=== PATIENT | male | born 1960 | race Caucasian/White ===

== ENCOUNTER 2025-05-01 21:38 | Inpatient (IN) | payer OTHER, SELFPAY ==
[2025-05-01] VITALS (40 sets, daily range): BP systolic 73–187; BP diastolic 51–113
--- NOTE | 2025-05-01 18:48 | PTCARENOTE ---
patient placed on cardiac/oxygen saturation monitoring, noted to be hypoxic in the 50s; nonrebreather applied, saturations increased to low 90s.
[2025-05-01 18:53] LABS: Glucose - Point of Care 173 mg/dl (70-99)
--- NOTE | 2025-05-01 18:53 | PTCARENOTE ---
patient transported to CT
--- NOTE | 2025-05-01 18:58 | PTCARENOTE ---
while at CT, patient mentioned he has had an upper respiratory infection for the past few weeks and states 'he does not feel right'.
--- NOTE | 2025-05-01 19:02 | ED.CVA ---
History of Present Illness
General
Chief Complaint: Change in Mental Status
Source: patient and spouse
Exam Limitations: none
Time Seen by Provider: 05/01/25 18:46
Nursing documentation reviewed up to this point in time: agreed with
Onset of Stroke Symptoms
Onset of symptoms known: Yes
Date of onset of symptoms: 05/01/25
Time of onset of symptoms: 17:20
Date last time pt seen normal: 05/01/25
Time last time pt seen normal: 06:00
History of Present Illness
History of Present Illness:
Patient without any significant past medical history, presents to ED secondary to visual hallucination along with unstable gait, noted by spouse, when he came back from work around 5:20 PM. Patient was seen at urgent care center and subsequently
referred to ED for an evaluation. Upon arrival, patient is alert, awake, alert and oriented, and is without any complaints. Of note, per spouse, patient has had upper respiratory symptoms for the past 1 week with decreased appetite. Patient does
not see family physician on a regular basis. As such, patient currently does not take any medications. Denies previous history of similar symptoms. Patient himself has no complaints.
Review of Systems
Review of Systems
Allergies reviewed?: Yes
All Other Systems: ROS reviewed and negative except as documented in HPI and ROS
Constitutional: Reports no symptoms
Respiratory: Reports no symptoms
Cardiac: Reports no symptoms
ABD/GI: Reports no symptoms
Musculoskeletal: Reports no symptoms
Skin: Reports no symptoms
Neurological: Reports other (Unsteady gait)
Psychiatric: Reports hallucinations
Phy Exam
Physical Exam
Physical Exam:
Physical Exam
General: no apparent distress, not acutely ill. afebrile
Head: nc/at. eomi
Neck: supple. no meningeal signs.
Heart: s1/s2 regular rate and rhythm
Lungs: no acute respiratory distress. clear bilaterally
Abdomen: normal bowel sounds. not tender.
Neuro: alert and oriented x 3. no focal neurological deficits. normal speech
Skin: no rash
Psychiatric: well kept. interactive but appears agitated
Extremities: no edema. no calf tenderness.
Sepsis
Sepsis Screening
Sepsis Assessment: Sepsis Ruled Out
Sepsis Screen
Sepsis Screen: Sepsis Ruled Out
Date: 05/01/25
Time: 23:42
Course
Orders/Labs/Results
Orders:
Orders
05/01/25 18:46
Electrocardiogram (*1) Stat
Reason for Study: Other
Other Reason for Exam: neuro symptoms
CT BRAIN PERF STROKE ALERT Urgent
Comment:
Reason For Exam: ataxia, slurred speech
CT HEAD STROKE ALERT W/o Cont Urgent
Comment:
Reason For Exam: ataxia, slurred speech
CT HEAD/NECK ANG STROKE ALERT Urgent
Comment:
Reason For Exam: ataxia, slurred speech
Bedside Glucose- Treatment ONCE
Cardiac Monitoring- Treatment ONCE
EKG- Treatment ONCE
05/01/25 19:19
CR Chest Portable - 1 View Urgent
Comment:
Reason For Exam: cough/hypoxia
Reason Study Needs to be Portable: Patient Unstable
05/01/25 19:30
Complete Blood Count/With Diff Urgent
Comprehensive Metabolic Panel Urgent
Magnesium Urgent
Comment: ADD ON
PTT Urgent
Phosphorus Urgent
Comment: ADD ON
Prothrombin Time Urgent
05/01/25 19:38
ABG [Arterial Blood Gas] Urgent
%Oxygen/Room Air: room air
Lactic Acid Urgent
Blood Culture Urgent
TERE Source: Blood/Venous
Specimen Description:
05/01/25 19:39
Levetiracetam Injectable [Keppra] 1,000 mg .ROUTE .[facility]
05/01/25 19:42
Levetiracetam Injectable [Keppra] 1,000 mg IV NOW STA
05/01/25 19:50
Blood Culture Urgent
TERE Source: Blood/Venous
Specimen Description:
05/01/25 20:03
Propofol 1,000,000 Mcg/100 ml [Diprivan] 1,000,000 mcg in 100 ml .ROUTE .[facility]
05/01/25 20:14
Portable Chest Xray [CR Chest Portable - 1 View] Stat
Comment:
Reason For Exam: intubation
Reason Study Needs to be Portable: Unable to Transport
05/01/25 20:30
Carboxymethylcellulose [Refresh Celluvisc Gel] 1 drops OPHTH Q12H
Etomidate [Amidate 20 mg] 20 mg IV NOW STA
Succinylcholine Chloride [Anectine] 160 mg IV NOW STA
Vecuronium [place] [Norcuron] 10 mg IV NOW STA
05/01/25 20:31
0.9% Sodium Chloride 1000 ml [Nss] 1,000 ml IV BOLUS
Propofol 1,000,000 Mcg/100 ml [Diprivan] 1,000,000 mcg in 100 ml IV NOW
Indication:: Light Sedation
Begin Infusion:: Now
Goal:: RASS 0 to -2
Maximum dose in mcg/kg/min:: 50
Initial dose based on RASS:: Yes
If RASS is:: +1 or pt hemodynamically unstable (SBP < 90mmHg), initiate at 10 mcg/kg/min
If RASS is:: +2, initiate at 20 mcg/kg/min
If RASS is:: greater than or equal to +3, initiate at 30 mcg/kg/min
Titration Instructions:: Titrate by 5-10 mcg/kg/min every 5 minutes until RASS 0 to -2 achieved.
Taper Instructions:: If RASS is at or below goal for 4 consecutive hours decrease infusion by
Taper Instructions:: 5-10 mcg/kg/min every 2 hours to off.
Over-sedation Instructions:: If CPOT 0-2 (at goal) AND RASS -3 to -5 (below goal) decrease sedative by
Over-sedation Instructions:: 50% first. If pain score remains at goal and RASS remains below goal in
Over-sedation Instructions:: 1 hour, decrease opioid infusion by 50%.
Notify provider:: immediately if patient exhibits signs/symptoms of propofol-related
Notify provider:: infusion syndrome.
Additional Instructions:: Patient MUST be mechanically ventilated and MUST receive analgesia.
05/01/25 20:32
Piperacillin/Tazo 3.375 Gram [Zosyn] 3.375 gram in 50 ml IV NOW
05/01/25 20:55
BNP [NT-proBNP] Stat
COVID-19 Antigen Stat
Source: Nasal Swab
Triglycerides Routine
Comment: baseline levels with propofol infusion
Troponin I Stat
Influenza A+B Rapid Molecular Stat
TERE Source: Nasal Swab
Specimen Description:
05/01/25 21:04
Admit/Transfer Patient As Directed
Co-Sign Provider:
Level of Care: Inpatient admission
Assign to:: ICU
Physician / Group: Bryan
Diagnosis: Hypercarbic respiratory failure
Reason for Hospitalization: Hypercarbic respiratory failure
Expected length of stay greater than two midnights?: Yes
ELOS- Estimated Length of Stay in days: 2
I certify the patient meets the requirements for IP care: Yes
05/01/25 21:05
PRN Pain Medication Management As Directed
May give lesser potent ordered pain med per pt: Yes
preference::
Protocol:: Medication orders for pain may be administered in a
manner that supports deferring to patient preference
when the pt is:
- Requesting an ordered lesser potent pain medication.
Least to most potent pain medications are defined
as: acetaminophen < NSAID < tramadol < opioids
(morphine, oxycodone, hydromorphone).
- Requesting a lesser dose of the same medication IF
ORDERED.
- Requesting a less intrusive route of administration
if both routes are prescribed by the provider (PO <
IV).
05/01/25 21:06
Code Status As Directed
Resuscitation Status: Full Code
Chest X-ray Portable [CR Chest Portable - 1 View] Stat
Comment:
Reason For Exam: intubation
Reason Study Needs to be Portable: Patient Unstable
05/01/25 21:16
Sputum Culture [Respiratory Culture/Gram Stain] Stat
TERE Source: Sputum
Specimen Description:
05/01/25 21:31
Vancomycin [Vancocin] 2,000 mg 0.9% Sodium Chloride 500 ml [Nss] 500 ml IV NOW
05/01/25 22:27
Acetaminophen [Tylenol] 650 mg PO Q4HPRN PRN
Dextrose 5%/0.9%Sodchl 1000 ml [D5/0.9% Sodium Chloride] 1,000 ml IV 100 mls/hr
Ipratropium/Albuterol Sulfate [Duoneb] 3 ml INH R Q4HPRN PRN
Ondansetron Injectable [Zofran] 4 mg IV Q6HPRN PRN
Propofol 1,000,000 Mcg/100 ml [Diprivan] 1,000,000 mcg in 100 ml IV PER PROTOCOL
Indication:: Light Sedation
Begin Infusion:: Now
Goal:: RASS 0 to -2
Maximum dose in mcg/kg/min:: 50
Continue currently infusion dose and titrate:: Yes
Titration Instructions:: Titrate by 5-10 mcg/kg/min every 5 minutes until RASS 0 to -2 achieved.
Taper Instructions:: If RASS is at or below goal for 4 consecutive hours decrease infusion by
Taper Instructions:: 5-10 mcg/kg/min every 2 hours to off.
Over-sedation Instructions:: If CPOT 0-2 (at goal) AND RASS -3 to -5 (below goal) decrease sedative by
Over-sedation Instructions:: 50% first. If pain score remains at goal and RASS remains below goal in
Over-sedation Instructions:: 1 hour, decrease opioid infusion by 50%.
Notify provider:: immediately if patient exhibits signs/symptoms of propofol-related
Notify provider:: infusion syndrome.
Additional Instructions:: Patient MUST be mechanically ventilated and MUST recieve analgesia
VANCOMYCIN Pharmacy to Dose [VANCOCIN Pharmacy to Dose] 1 each Pharmacy To Prepare [Call Pharmacy To Prepare] 0 ml IV PER PROTOCOL
05/01/25 22:27
Sales Inspector Consult Routine
Consulting Provider: Camilla Petersen
Was physician already notified: Yes
Reason for consult: hypercarbic resp failure
Venous Blood Gas Routine
%Oxygen/Room Air: 50
Legionella Urinary Antigen Routine
TERE Source: Urine
Specimen Description:
Respiratory Culture/Gram Stain Urgent
TERE Source: Sputum
Specimen Description:
Strep pneumoniae Antigen Routine
TERE Source: Urine
Specimen Description:
MRI Brain [MR Brain Without Contrast] Routine
Comment:
Reason For Exam: f/u CT for AMS, suspected basal ganglia infarct
Recent pill cam endoscopy?: Yes
Activity As Directed
Activity Level: Out of Bed-Early Mobility
Intake/ Output As Directed
Frequency: Per unit guidelines
Vital Signs As Directed
Frequency: Per unit guidelines
Weight As Directed
Frequency: Once
Comment: on admission
Pulse Ox/cont/shift [RESP] Routine
Quantity: 1
Special Instructions: notify provider if SPO2 < 91%
Ventilator Initial Settings [RESP] Routine
Tidal Volume: 500
Rate: 22
FIO2: 50
PEEP: 5
Pt Eval And Treat Routine
Activity Level: With Assistance
DX Deep Vein Thrombosis Video Routine
05/01/25 23:00
MethylPREDNISolone PF [Solu-Medrol Pf] 40 mg IV Q6H
05/02/25 04:00
Piperacillin/Tazo 3.375 Gram [Zosyn] 3.375 gram in 50 ml IV Q6H
05/02/25 Breakfast
NPO
Allow oral meds: No
Allow clear liquids: No
Arterial Blood Gas IN AM
%Oxygen/Room Air: 50
Basic Metabolic Panel IN AM
Complete Blood Count/No Diff IN AM
05/02/25 08:00
Ipratropium/Albuterol Sulfate [Duoneb] 3 ml INH R QID
Pantoprazole [Protonix IV] 40 mg IV DAILY
Polyethylene Glycol Powder [Miralax] 17 grams TUBE DAILY
05/02/25 18:00
Enoxaparin Sodium [Lovenox] 40 mg SC QPM
05/04/25 06:00
Triglycerides Q3D
Comment: every 72 hours while patient is on propofol
05/07/25 06:00
Triglycerides Q3D
Comment: every 72 hours while patient is on propofol
05/10/25 06:00
Triglycerides Q3D
Comment: every 72 hours while patient is on propofol
Abnormal Lab Results
05/01/25 05/01/25 05/01/25
18:50 19:30 19:38
RBC 4.02 L 10^6/uL
(4.70-6.10)
Hgb 11.8 L g/dL
(13.0-18.0)
Hct 36.9 L %
(39.0-52.0)
MCHC 32.0 L g/dL
(33.0-37.0)
MPV 11.0 H fL
(7.4-10.4)
Abs Immat Gran (auto) 0.1 H 10^3/uL
(0-0.05)
Absolute Neuts (auto) 7.9 H 10^3/uL
(1.4-6.5)
Absolute Monos (auto) 0.8 H 10^3/uL
(0.1-0.6)
Immature Gran % 1.2 H %
(0-0.5)
Neutrophils % 76.7 H %
(42.2-75.2)
Lymphocytes % 13.3 L %
(20.5-51.1)
PT 15.1 H Sec
(11.4-14.6)
APTT 35.8 H Sec
(23.4-35.0)
pH 7.08 L*
(7.35-7.45)
pCO2 > 115 H* mmHg
(35-48)
pO2 160 H mmHg
(83-108)
HCO3 36.2 H mmol/L
(21-28)
ABG O2 Sat (Measured) 100.0 H %
(94-98)
Carbon Dioxide 33 H mmol/L
(22-30)
BUN 36 H mg/dl
(9-20)
Glucose 168 H mg/dl
(70-99)
POC Glucose 173 H mg/dl
(70-99)
05/01/25 19:30
05/01/25 19:30
Vital Signs
Initial and Last Documented VS:
Initial Vital Signs
Temp Pulse Resp BP Pulse Ox
97.9 F 115 23 154/91 96
05/01/25 19:18 05/01/25 19:18 05/01/25 19:18 05/01/25 19:18 05/01/25 19:18
Last Documented Vital Signs
Temp Pulse Resp BP Pulse Ox
100.1 F 60 20 94/70 97
05/01/25 19:19 05/01/25 23:15 05/01/25 23:15 05/01/25 23:15 05/01/25 23:00
MDM/Problems Addressed
MDM/Problems Addressed:
Patient evaluated immediately upon arrival and stroke alert activated, due to mental status change, mildly slurred speech and unstable gait when transferring to [facility] from wheelchair. Patient found to be hypoxic, requiring supplemental oxygen.
Shortly after returning from CT scan, patient noted to become less conversational and responsive to verbal or physical stimuli. With initial CT head report, discussed with stroke fellow at [facility], Dr. Olivo. As
patient's last well-known time was 6 AM, does not feel the patient will be a candidate for tenecteplase. Recommends further evaluation and treatment, as on his interpretation, CT reveals possible hypodensity in midbrain, which will need further
studies.
In light of patient's recent URI symptoms, smoking history, and altered mental status, arterial blood gas ordered, with concern for potential hypercapnia. With patient's continual deterioration of mental status and diminished gag reflex, discussed
with patient's spouse and daughters at bedside regarding potential intubation for airway protection. Initially, spouse was hesitant as her previous discussion with patient, patient had made it clear to spouse that he did not wish to be put on
ventilator. However as patient's presenting symptoms currently, which may be primarily driven by hypercapnic event, I did express to spouse and daughters, to consider intervention, as his symptoms may be treatable and intubation may be short-term
only. After discussion, everyone agreed to proceed with intubation.
Intubation successful with use of glidescope. However, during observation, after OG tube placement, approached by respiratory therapist there continues to be airleak present, along with desaturation. As such, airway visualized with glide scope,
confirming correct positioning. Afterwards, utilized a bougie and exchanged ET tube successfully, confirmed by repeat chest x-ray.
Patient will be admitted to ICU for further evaluation and treatment.
Critical care statement: A total of 60 minutes of critical care time was provided for this patient. This includes management of unstable vital signs, evaluation of the patient at bedside, reviewing the patient's pertinent medical records, discussion
with consultants, review of old EKGs and review of pertinent medical records. This time with separate from time utilized to perform the aforementioned documented procedures
*Pulse Oximetry
Patient hypoxic: yes
*EKG
Interpreted by ED Provider?: Yes
EKG Intrepretation Date: 05/01/25
Heart Rate: 115
Rate: tachycardiac
Rhythm: sinus
[place]: normal axis
Interval: normal interval
*Critical Care Note
Total Time (30-74mins, 75-104mins- exclusive of procedures): 60 min
ED Attending Note
-
Portions of this chart may have been created with voice recognition software.� Occasional wrong word or��sound alike� substitutions may have occurred due to the inherent limitations of voice recognition software.
Discharge Plan
Departure
Patient Disposition: Admit
Date of Disposition: 05/01/25
Time of Disposition: 20:33
Admit to: ICU
Presentation/result/management discussed w/ accepting MD/DO: Hospitalist
Discharge Problem:
Acute respiratory failure without hypercapnia
Interventions
Interventions:
*Risk Screen - Suicide Last Done: 05/01/25 19:51
*General Assessment Last Done: 05/01/25 19:19
*Neglect/Abuse Screening Last Done: 05/01/25 19:36
*Nursing Disposition Last Done: 05/01/25 22:00
ED- Neurological Assessment Last Done: 05/01/25 19:30
ED Swallowing Screen Last Done: 05/01/25 19:37
Discharge Date and Time
Discharge Date/Time: 05/01/25 22:06
--- NOTE | 2025-05-01 19:31 | PTCARENOTE ---
prior to and during CT scan, patient was awake, alert, confused, agitated; upon returning from CT scan, pt became stuporous, unable to answer questions.
[2025-05-01 19:36] LABS: Hematocrit 36.9 % (39.0-52.0); Hemoglobin 11.8 g/dL (13.0-18.0); Mean Corp Hgb Conc. 32.0 g/dL (33.0-37.0); Mean Corpuscular Volume 91.8 fL (80.0-94.0); Nucleated Red Blood Cells % 0 % (-); Platelet Count 153 10^3/uL (130-400); Red Cell Dist. Width 14.2 % (11.5-14.5)
[2025-05-01] MEDS: KEPPRA 1000 MG IV (19:42)
[2025-05-01 19:46] LABS: INR 1.16; PT 15.1 Sec (11.4-14.6)
[2025-05-01 19:47] LABS: APTT 35.8 Sec (23.4-35.0)
[2025-05-01 19:52] LABS: PO2 160 mmHg (83-108)
[2025-05-01 19:52] LABS: ALT (SGPT) 17 U/L (0-50); AST (SGOT) 18 U/L (17-59); Albumin 4.4 g/dl (3.5-5.0); Alkaline Phosphatase 98 U/L (38-126); Blood Urea Nitrogen 36 mg/dl (9-20); Calcium 9.1 mg/dl (8.4-10.2); Carbon Dioxide 33 mmol/L (22-30); Chloride 98 mmol/L (98-107); Glucose 168 mg/dl (70-99); Potassium 4.2 mmol/L (3.5-5.1); Sodium 138 mmol/L (135-145); Total Protein 7.9 g/dl (6.3-8.2); eGFR > 60.00
[2025-05-01 19:56] LABS: B.E. 2.7 mmol/L; HCO3 36.2 mmol/L (21-28); O2 Saturation % 100.0 % (94-98)
[2025-05-01 19:57] LABS: PCO2 > 115 mmHg (35-48)
[2025-05-01] MEDS: AMIDATE 20 MG IV (20:10)
[2025-05-01] MEDS: ANECTINE 160 MG IV (20:10)
[2025-05-01] MEDS: NORCURON 10 MG IV (20:18)
--- NOTE | 2025-05-01 20:20 | PTCARENOTE ---
verbal order obtained with verbal readback from Dr. Mack for 10 mg Vecuronium, given by Holden MELISSA at 2018
[2025-05-01] MEDS: DIPRIVAN 100 IV (20:33)
[2025-05-01] MEDS: NSS 1000 IV (20:43)
--- NOTE | 2025-05-01 20:43 | HPS.HSE ---
Family Physician
-
Family Physician: * NONE
Chief Complaint
-
Altered mental status
History of Present Illness
This is a 65-year-old male without any known past medical history, smoker presenting to the emergency department with acute worsening of respiratory status and alteration in mental status.
According to family members patient had developed a upper respiratory infection about 1 week ago. Multiple family members had a cough cold and flulike symptoms and they have mostly recovered by now. Patient had intermittent fevers and productive
cough for about a week. Yesterday appeared that he was recovering and he went to work today. At work he was sent home. On arrival at home spouse saw him disoriented. He had hallucinations. Did not measure any fever and he was taken to urgent
care. On arrival in urgent care was sent immediately to the emergency department.
Patient is smoker but denies past history of COPD and any previous hospitalizations for pneumonia or other respiratory symptoms. He has no cardiac history. He has no history of interstitial lung disease over the pulmonary illnesses. Has no prior
history of CVA.
On arrival in the emergency department he was seen in hypercarbic respiratory distress. His blood gas shows a pH of 7.08, but CO2 115. Was immediately intubated. Blood pressure is currently 94/63 with a Tmax of 100.1. Chest x-ray shows bilateral
opacities which could be consistent with pulmonary edema. CT of the brain and CTA was negative for an acute ischemic process. However the neurologist read is suspicious for possible small basal ganglia infarct which can be followed by MRI.
He has a white count of 10 but otherwise CBC was unremarkable. Electrolytes notable for a bicarb of 33 but otherwise unremarkable with BUN/creatinine of 36 and 1.2. ECG with sinus tachycardia at 105 but otherwise nonischemic.
Medical History
Past Medical History
Past Medical History: Reports None
Past Surgical History: Reports None
Social History
Tobacco: Smoker
Alcohol: None
Drug: None
Personal:
Living: With Family
Employment: Employed
Family History
Family History: Not pertinent
Allergies / Home Medications
Allergies reflects when Allergies were last updated in [employer].
Home Medications with original date entered in [employer]
Allergy/Medication List:
Allergies
Allergy/AdvReac Type Severity Reaction Status Date / Time
No Known Allergies Allergy Unverified 05/01/25 19:19
No home medications
Review of Systems
-
Unable to obtain full review of systems at this time due to: Patient Intubation
Physical Exam
Vital Signs
Vital Signs
Temp Pulse Resp BP Pulse Ox
100.1 F 110 22 94/63 92
05/01/25 19:19 05/01/25 20:30 05/01/25 20:30 05/01/25 20:30 05/01/25 20:30
Physical Exam
General: Well Developed and Intubated
HEENT: NormoCephalic, Anicteric and Moist mucous membranes
Respiratory: Rhonchi; No Wheezes
Cardiac: S1/S2, Regular Rhythm and Tachycardia
Breast: Deferred by me
GI: Soft, Non Distended and Normal Bowel Sounds
Rectal: Deferred by Provider
Genito-urinary: Deferred by me
Musculoskeletal: No Clubbing, No Cyanosis and No Edema
Skin: Warm
Neuro: Sedated
Hematologic/Lymphatic: No Lymphadenopathy
Laboratory Results
-
05/01/25 19:30
05/01/25 19:30
Laboratory Results
PT 15.1 Sec (11.4-14.6) H 05/01/25 19:30
INR 1.16 05/01/25 19:30
APTT 35.8 Sec (23.4-35.0) H 05/01/25 19:30
pH 7.08 (7.35-7.45) L* 05/01/25 19:38
pCO2 > 115 mmHg (35-48) H* 05/01/25 19:38
pO2 160 mmHg (83-108) H 05/01/25 19:38
HCO3 36.2 mmol/L (21-28) H 05/01/25 19:38
Lactic Acid 0.7 mmol/L (0.7-2.0) 05/01/25 19:38
Total Bilirubin 0.5 mg/dl (0.2-1.3) 05/01/25 19:30
AST 18 U/L (17-59) 05/01/25 19:30
ALT 17 U/L (0-50) 05/01/25 19:30
Alkaline Phosphatase 98 U/L (38-126) 05/01/25 19:30
Data Reviewed
-
Diagnostic Radiology: Report Reviewed by me
CT Scan: Report Reviewed by me
Medical Tests (Nuc Med, Echo, EKG etc): Image Personally Visualized and interpreted
Lab Data: Labs Reviewed by me
Impression/Plan
-
IMPRESSION:
67-year-old with no known significant past medical history presenting to the emergency department with hypercarbic respiratory failure and altered mental status. X-ray with multifocal opacities read as possible pulmonary edema but likely pneumonia
given patient has no prior cardiac history and has recent upper respiratory infection she had by family members. There is no leukocytosis. Copious secretions status post intubation. Rest of the labs are mostly unremarkable except for the blood
gas. CT of the head, CT angio and perfusion shows no acute infarct according to radiologist read. Neurology did note possible basal ganglia infarct that can be followed by MRI.
PLAN:
Hypercarbic respiratory failure -suspect secondary to postviral pneumonia with multifocal infiltrates. Require intubation and patient is now status post intubation.
- Admit to ICU
-Vent setting initially at 22 500 50 5 for now
-Repeat gas in 1 hour and adjust as needed
-Blood cultures, sputum cultures
-Check influenza and COVID
-Check Legionella and pneumococcal antigen
-Given failure and possible sepsis will continue vancomycin and Zosyn for now
-Given degree of hypercarbia, although known known COPD we will start [id number] neb treatment with PRNs as well as IV Solu-Medrol
- Weaning per wood casket assembler
- PPI IV prophylaxis
- Check troponin and BMP
AMS - suspect secondary to acute infection rather than CVA.
- f/u mri in am
DVT prophylaxis with Lovenox subcu
CODE STATUS full code
[2025-05-01] MEDS: ZOSYN 50 IV (20:51)
--- NOTE | 2025-05-01 21:08 | PTCARENOTE ---
over concerns of original ET tube placement, Dr Mack replaced #8 ET tube, 23 at the lip.
[2025-05-01 21:15] LABS: COVID-19 Antigen Negative (Negative)
[2025-05-01 21:26] LABS: Troponin I < 0.012 ng/ml
[2025-05-01 21:37] LABS: Triglycerides 127 mg/dl (10-149)
[2025-05-01] MEDS: VANCOCIN 540 MG IV (21:39)
[2025-05-01] MEDS: DUONEB 3 ML INH (21:40)
[2025-05-01 21:53] LABS: B.E. 5.1 mmol/L; HCO3 34.2 mmol/L (21-28); O2 Saturation % 100.0 % (94-98); PO2 199 mmHg (83-108)
[2025-05-01 21:54] LABS: PCO2 78 mmHg (35-48)
--- NOTE | 2025-05-01 21:59 | PTCARENOTE ---
report called to ICU
[2025-05-01] MEDS: SOLU-MEDROL PF 40 MG IV (23:07)
[2025-05-01] MEDS: LEVOPHED 250 IV (23:07)
[2025-05-01] MEDS: D5/0.9% SODIUM CHLORIDE 1000 IV (23:07)
[2025-05-01 23:14] LABS: Magnesium 2.2 mg/dl (1.6-2.3)
--- NOTE | 2025-05-01 23:23 | PHA.VAN.IN ---
Assessment
- Assessment
Renal Function: Unknown baseline
Concomitant Antimicrobials: PIPERACILLIN/TAZOBACTAM
AUC Dosing Plan
- Dosing Variables
Dosing Weight (kg): 100
Dosing CrCl (ml/min): 85
Vd coefficient (L/kg): 0.7
- Empiric Dosing
Initial / Loading Dose: 2000 MG ~ 2140
Maintenance Regimen: 1250 MG IV Q12H
Estimated AUC (mcg*h/mL): 503
Estimated Peak (mcg*h/mL): 30
Estimated Trough (mcg/ml): 13.7
Estimated Half Life (H): 9.2
- Monitoring
No levels ordered at this time: Consider levels in next few days
Pharmacokinetics Vancomycin I
- -
Patient Age: 65
Patient Sex: Male
Vancomycin Day #: 1
Indication: Pulmonary/Respiratory
Requesting Provider: Dr Bryan Lowe
Height / Weight:
Actual Weight 100.2 kg
- Vital Signs / Lab Results
Temp Pulse Resp BP Pulse Ox
100.1 F 60 20 94/70 97
05/01/25 19:19 05/01/25 23:15 05/01/25 23:15 05/01/25 23:15 05/01/25 23:00
Lab Results - Hematology
05/01/25
19:30
WBC 10.3
Lab Results - Chemistry
05/01/25
19:30
BUN 36 H
Creatinine 1.2
Albumin 4.4
05/01/25
19:38
Lactic Acid 0.7
Microbiology Results
05/01/25 20:55 Influenza Types A & B (MAXINE) - Final
Nasal Swab Negative for Influenza A & B, NAAT
Negative results must be combined with clinical observations
and patient history.
Nucleic Acid Amplification test (NAAT)performed on the
[employer] platform.
--- NOTE | 2025-05-01 23:55 | PTCARENOTE ---
on assessment pt intubated and sedated, SR/SB on the monitor, 99%, AC 22/500/40%/5, NPO, OGT, russo placed in ED, skin intact
[2025-05-02] VITALS (25 sets, daily range): BP systolic 87–140; BP diastolic 56–99; BMI 28.7
[2025-05-02] MEDS: DIPRIVAN 100 IV ×4 (00:13→23:55)
[2025-05-02] MEDS: SUBLIMAZE 50 MCG IV ×3 (01:31→22:24)
[2025-05-02 02:41] LABS: B.E. 5.6 mmol/L; HCO3 28.2 mmol/L (21-28); O2 Saturation % 99.8 % (94-98); PCO2 33 mmHg (35-48); PO2 74 mmHg (83-108); Potassium 4.5 mMOL/L (3.5-5.1); Sodium 136 mMOL/L (136-145)
[2025-05-02 02:51] LABS: Hematocrit 30.1 % (39.0-52.0); Hemoglobin 10.0 g/dL (13.0-18.0); Mean Corp Hgb Conc. 33.2 g/dL (33.0-37.0); Mean Corpuscular Volume 89.1 fL (80.0-94.0); Platelet Count 141 10^3/uL (130-400); Red Cell Dist. Width 14.2 % (11.5-14.5)
--- NOTE | 2025-05-02 02:52 | W.PN.UPDATE ---
Update Note
Progress Note Update
Procedure Note: Arterial Line�
� Right Wrist Arrow 20 (10/18)�
Diagnosis:��Acute respiratory failure
IV Line Comments: Uneventful Procedure�
Hilton's test completed pre-procedure: Yes�
A-Line Comments: Sterile technique as per standard protocol, Ultrasound guided insertion�
Functioning A-line in situ: Yes�
A-line Insertion Start Time:�0100�
A-line in at:��0200
[2025-05-02 03:22] LABS: Blood Urea Nitrogen 33 mg/dl (9-20); Calcium 8.3 mg/dl (8.4-10.2); Carbon Dioxide 28 mmol/L (22-30); Chloride 105 mmol/L (98-107); Glucose 167 mg/dl (70-99); Potassium 4.7 mmol/L (3.5-5.1); Sodium 137 mmol/L (135-145); eGFR > 60.00
[2025-05-02] MEDS: ZOSYN 50 IV ×2 (03:43→09:06)
[2025-05-02] MEDS: CALCIUM GLUCONATE 100 IV (03:56)
[2025-05-02] MEDS: SOLU-MEDROL PF 40 MG IV (04:00)
--- NOTE | 2025-05-02 04:08 | PTCARENOTE ---
no changes from prior assessment, [facility] placed R radial [place], zeroed and level
--- NOTE | 2025-05-02 05:02 | PTCARENOTE ---
pt SB on the monitor in the mid to high 40s, CLINICAL PSYCHIATRIST aware and weaning down sedation per orders
[2025-05-02] MEDS: PROTONIX IV 40 MG IV (07:21)
[2025-05-02] MEDS: D5/0.9% SODIUM CHLORIDE 1000 IV (07:21)
[2025-05-02] MEDS: MIRALAX 17 GRAMS TUBE (07:21)
--- NOTE | 2025-05-02 07:33 | CON.INTV ---
Consultation
Consultation Request
Date/Time Consultation Requested: 05/01/2025
Date/Time Consultation Performed: 05/02/2025
Medical History
-
Chief Complaint: Altered mental status
History of Present Illness:
Patient currently intubated and mechanically ventilated, unable to provide any history. Information mostly obtained from medical records and discussion with other healthcare providers.
As per records, patient is a 65-year-old gentleman without any known past medical history however has chronic history of smoking and also has obesity. Patient reportedly developed an upper respite tract infection about a week ago including multiple
other family members who had similar flulike symptoms. Patient symptoms however persisted persisted and he presented to the emergency room due to increasing shortness of breath. Reportedly he also has increased confusion and some hallucinations at
home. In the emergency room patient was noted to be febrile along with respiratory distress along with acidosis primarily respiratory with pCO2 above 115. Patient was emergently intubated and mechanically ventilated. Post procedure, he was
admitted to the ICU and bankruptcy processor consultation was requested for further input.
Past Medical History
Past Medical History: Reports None
Past Surgical History: Reports None
Social History
Tobacco: Smoker
Alcohol: None
Drug: None
Personal:
Living: With Family
Employment: Employed
Family History
Family History: Not pertinent
Allergies / Home Medications
Allergies / Home Medications
Allergies
Allergy/AdvReac Type Severity Reaction Status Date / Time
No Known Allergies Allergy Unverified 05/01/25 19:19
Review of Systems
-
Unable to Obtain full review of systems at this time due to: Patient Intubation
Vitals / Labs / Diagnostic Testing
Vital Signs
Temp Pulse Resp BP Pulse Ox
98.9 F 47 18 99/77 94
05/02/25 04:06 05/02/25 06:00 05/02/25 06:00 05/02/25 02:00 05/02/25 07:22
Lab Data
05/02/25 02:34
05/02/25 02:34
Laboratory Results
05/01/25 05/01/25 05/01/25
19:30 19:38 21:46
PT 15.1 H
INR 1.16
APTT 35.8 H
pH 7.08 L* 7.25 L
pCO2 > 115 H* 78 H*
pO2 160 H 199 H
HCO3 36.2 H 34.2 H
O2 Delivery Level
05/02/25 05/02/25
02:34 06:00
PT
INR
APTT
pH 7.54 H Cancelled
pCO2 33 L Cancelled
pO2 74 L Cancelled
HCO3 28.2 H Cancelled
O2 Delivery Level Cancelled
Microbiology
05/01/25 20:55 Nasal Swab Influenza Types A & B (MAXINE) - Final
Negative for Influenza A & B, NAAT
Negative results must be combined with clinical observations
and patient history.
Nucleic Acid Amplification test (NAAT)performed on the
[employer] platform.
Diagnostic Testing:
Physical Exam
-
HEENT: Normocephalic
Cardiovascular: S1/S2
Respiratory: Rhonchi and Other (Mild diffuse end expiratory wheezing, AP diameter increased)
GI: Soft and Non Distended
Neurology: Other (Sedated, on mechanical ventilation)
Skin: Warm
General: Comfortable
Assessment
-
#1. Acute on suspect chronic hypercapnic respiratory failure
- pCO2 more than 115 on admission, serial ABGs with progressive improvement most recent
- With elevated serum bicarb and alkalosis after normalization of pCO2 on blood gas, suspect patient has chronic underlying compensated hypercapnia due to undiagnosed COPD/emphysema
- Currently intubated, mechanically ventilated. SAT/SBT tried on 05 02, patient developed rapid and shallow breathing with increased secretions, patient switched back to mechanical ventilation
- Switch to ASV at 100%, current blood gas 7.30 50/175 on 40% FiO2 and 5 of PEEP. Follow-up blood gas while on ASV
- Follow-up chest x-ray in a.m.
- Continue fentanyl drip and propofol as needed for sedation. Will continue daily SAT and SBT
- Wean pressors as needed, suspect mild hypotension related to intubation, mechanical ventilation and sedation.
- Follow-up on cultures
#2. Acute encephalopathy, related to hypercapnia
- Patient more awake and alert this morning, had to be - after he failed SAT and SBT
- CT CTA have been unremarkable for acute stroke, MRI pending
#3. Emphysema/COPD with acute exacerbation.
- Patient has changes of emphysema noted on pulmonary imaging. Longstanding history of smoking
- Continue DuoNeb scheduled 4 times daily, add budesonide twice daily nebulized, lowered steroids to 40 mg Solu-Medrol daily
- No obvious infiltrates noted on chest x-ray. Discontinue vancomycin and Zosyn. Start azithromycin for COPD exacerbation.
- Influenza A, B, COVID-19 screen negative. Legionella and streptococcal antigen pending. Respiratory culture is also pending. Blood cultures drawn and pending.
- Follow-up on cultures as well as sputum analysis
- Patient will need outpatient pulmonary follow-up for pulmonary function testing including spirometry, lung volumes, diffusion capacity assessment and 6-minute walk test
#4. Obesity with suspected sleep disordered breathing/obesity hypoventilation syndrome
- With baseline compensated hypercapnia, and obesity, high likelihood of underlying sleep disordered breathing
- Patient will need outpatient pulmonary follow-up for sleep study
#5. RUL nodule on imaging
- Incidental finding on CTA head and neck. With longstanding history of smoking and emphysema, malignancy is certainly a concern
- Will proceed with CT chest once patient is improved, and extubated
- Will need outpatient close follow-up, information added to discharge section. Depending upon clinical course, patient likely will need a tissue diagnosis with bronchoscopy and biopsy
#6. Bradycardia
- Sinus bradycardia on EKG. Narrow complex qrs
- Check TSH
- d/c Norepinephrine and use Epinephrine infusion instead
- Minimize propofol, use fentanyl infusion
DVT prophylaxis with subcu Lovenox. GI prophylaxis with IV Protonix.
Critical Care time 68 mins -- The patient is admitted for acute critical illness for the treatment of vital organ failure and/or prevention of further life-threatening conditions. Total care includes time spent in review of history, physical exam,
medications, hemodynamic/ventilator parameters, laboratory data, imaging and discussion with house staff, pharmacy, respiratory therapy, swine nutritionist, and nursing.
Data:
CXR 04/2025: Bilateral interstitial opacities, most suspicious for interstitial pulmonary edema. The opacity identified in the right lung apex on the recent CT angiogram is less well seen by radiograph.
No pleural effusion or pneumothorax.
Mild enlargement of the cardiac silhouette. Chronic degenerative changes of the spine
CT head 04/2025: Unremarkable
CTA Head/Neck 04/2025: No CTA evidence for high-grade stenosis or occlusion of the [place] or the arterial vasculature in the neck. 50% stenosis of the right carotid bulb, and less than 20% stenosis of the left carotid bulb.
Mild centrilobular emphysema.
2.1 cm irregular opacity in the right upper lung apex. Chronic pleural-parenchymal scarring is considered most likely, but an infectious/inflammatory process or neoplasm are not excluded. Recommend a follow-up chest CT on a routine basis.
[2025-05-02] MEDS: DUONEB 3 ML INH ×4 (07:51→19:40)
[2025-05-02] MEDS: ADRENALIN 250 IV ×2 (08:04→17:53)
--- NOTE | 2025-05-02 08:37 | PTCARENOTE ---
pt received from previous rn- ett to vent. see settings as charted. pt bradycardiac, propofol off. Dr. Petersen aware. ekg completed per order. pt switched from levo to epi gtt. pt with episode of bradycardia in the 20s, Dr. Petersen aware. pt arouses
to name, nods yes and no to some questions, follows some simple commands. oral care and am care provided. all safety precautions in place. right radial tessa zeroed and functioning.
--- NOTE | 2025-05-02 08:57 | W.PN.HOSP.TC ---
Today's Communication/Plan
-
Continue with pain protocol
Continue with empirical antibiotics for now. Check procalcitonin and CRP. If procalcitonin is negative we will do a viral respiratory panel PCR and consider discontinuing antibiotics.
Continue steroids per pulmonary.
Assessment / Plan
Assessment / Plan
67-year-old with no known significant past medical history presenting to the emergency department with hypercarbic respiratory failure and altered mental status. X-ray with multifocal opacities read as possible pulmonary edema but likely pneumonia
given patient has no prior cardiac history and has recent upper respiratory infection she had by family members. There is no leukocytosis. Copious secretions status post intubation. Rest of the labs are mostly unremarkable except for the blood
gas. CT of the head, CT angio and perfusion shows no acute infarct according to radiologist read. Neurology did note possible basal ganglia infarct that can be followed by MRI.
PLAN:
Acute hypercarbic respiratory failure - patient is now status post intubation.
Improved gas exchange on the ventilator.
Currently on vent protocol
Suspected chronic lung disease/COPD-patient is a smoker, centrilobular emphysema and as well as a right upper lobe pleuroparenchymal/opacity noted.
Will need smoking cessation and as well as pulmonary function test once recovered from this.
Possible precipitant factor to hypercapnia may be underlying lung infection.
Suspect more acute hypercapnia on top of possible chronic hypercapnia. Admitting serum bicarb is mildly elevated. Check a urine drug screen to make sure of any substance use.
Bilateral interstitial lung infiltrates-infectious versus inflammation
Not acting like typical bacterial pneumonia-afebrile on admission, white count normal. There is also family members afflicted with respiratory illness pointing towards other viral or atypical bacterial infection.
Check procalcitonin and if negative will obtain a respiratory virus panel PCR and discontinue antibiotics
Check inflammatory markers.
Continue with empirical antibiotics for now
So far pneumococcal and streptococcal urinary antigen, flu, COVID testing negative
Doubt interstitial edema-EKG apart from sinus bradycardia no acute changes, troponins negative, and BNP normal.
Right upper lobe opacity-needs dedicated CT chest once stabilized.
Sinus bradycardia-propofol off and on epinephrine for heart rate. Continue to follow on telemetry check TSH.
AMS - suspect secondary to TME rather than CVA.
- f/u mri when extubated
DVT prophylaxis with Lovenox subcu
CODE STATUS full code
Discussed with AUTOMOTIVE GLAZIER
Discussed with machine gun mechanic
Total time spent on today's encounter was 52 minutes which included time spent in counseling the patient/family regarding diagnosis and treatment plan as listed above, goals of care, and symptom management. Case was discussed with nursing staff,
specialists, and care coordinators/case management. All labs and imaging personally reviewed by me. Remainder the time spent in detailed review of previous records, lab data, imaging, and other medical provider documentation.
Portions of this chart may have been created with voice recognition software. Occasional wrong word or 'sound alike' substitutions may have occurred due to the inherent limitations of voice recognition software.
Anticipated Discharge: > 48 hours
Subjective/Interval History
-
Date of Service: May 02, 2025
Currently intubated.
Patient is on weaning protocol-responsive to vocal commands. Follows simple commands like squeezing hands and opening and closing eyes. No obvious respiratory distress.
Objective Data
-
Labs:
Laboratory Results
05/01/25 05/02/25 05/02/25
21:46 02:34 06:00
WBC 9.5
Hgb 10.0 L
Hct 30.1 L
Plt Count 141
HCO3 34.2 H 28.2 H Cancelled
Sodium 137
Potassium 4.7
Chloride 105
Carbon Dioxide 28
BUN 33 H
Creatinine 1.0
Glucose 167 H
Calcium 8.3 L
05/02/25
09:00
WBC
Hgb
Hct
Plt Count
HCO3 Pending
Sodium
Potassium
Chloride
Carbon Dioxide
BUN
Creatinine
Glucose
Calcium
Vital Signs:
Vital Signs
Temp Pulse Resp BP Pulse Ox
98.8 F 50 15 118/79 96
05/02/25 07:59 05/02/25 07:54 05/02/25 07:54 05/02/25 07:45 05/02/25 08:15
I&O
05/01/25 05/02/25 05/03/25
06:59 06:59 06:59
Intake Total 1001.9 / 1130.4 228.5 / 228.5
Output Total 1110 / 1185 115 / 115
Balance -108.1 / -54.6 113.5 / 113.5
Review of Systems
-
Unable to obtain full review of systems at this time due to: Patient Intubation
Physical Exam
-
General: No Apparent Distress
Respiratory: Clear to Auscultation (Anteriorly) and Non Labored Respirations; Negative Wheezes (On anterior auscultation) or Accessory Resp Muscle Use
Cardiac: Regular Rhythm, S1/S2 and Bradycardic
GI: Soft, Nondistended, Normal Bowel Sounds and No Hepatosplenomegaly
Musculoskeletal: No Edema
Neuro: Awake
Psych: Calm
Data Reviewed
-
CT Scan: Report Reviewed by me (CT head, CTA of the head and neck)
Labs: Labs Reviewed by me
[2025-05-02 09:17] LABS: B.E. 0.2 mmol/L; HCO3 27.2 mmol/L (21-28); O2 Saturation % 99.4 % (94-98); PCO2 54 mmHg (35-48); PO2 175 mmHg (83-108)
[2025-05-02] MEDS: SUBLIMAZE 100 MCG IV (09:52)
[2025-05-02] MEDS: SUBLIMAZE 100 IV (09:53)
[2025-05-02] MEDS: VANCOCIN 275 MG IV (10:08)
--- NOTE | 2025-05-02 10:11 | PTCARENOTE ---
pt awake and following commands. abg sent per order. pt attemted on wean, per Dr. Petersen pt back on asv and ordered to resedated pt. fentanyl gtt initiated as per order, low dose propofol restarted.
[2025-05-02 10:14] LABS: C-Reactive Protein 47.80 mg/L (0.0-10.00)
[2025-05-02 11:39] LABS: Glucose - Point of Care 199 mg/dl (70-99)
[2025-05-02 11:43] LABS: B.E. 0.3 mmol/L; HCO3 27.2 mmol/L (21-28); O2 Saturation % 99.3 % (94-98); PCO2 54 mmHg (35-48); PO2 98 mmHg (83-108)
[2025-05-02] MEDS: ZITHROMAX INFUSION 250 IV (12:05)
[2025-05-02] MEDS: LR 1000 IV ×4 (12:05→23:03)
--- NOTE | 2025-05-02 12:12 | PTCARENOTE ---
Dr. Jordan and Dr. Petersen aware of blood sugar and urine output. see mar. family at bedside and updated. assessment unchanged.
[2025-05-02 12:42] LABS: Procalcitonin 0.06 ng/ml (0.0-0.25)
--- NOTE | 2025-05-02 13:54 | CM ---
Patient intubated. Initial assessment completed with and 2 daughters. Patient lives with his in a 2 story plus basement home with B/B on 2nd, 2 steps to enter. 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 No DME. No
in-home services. No HC-POA. No VA benefits. No psychiatric hospitalizations. PCP is Dr. Valeriano Duncan. Pharmacy is [facility] in [place]. Discharge POC: TBD.
--- NOTE | 2025-05-02 15:48 | PTCARENOTE ---
pt with 200cc of output from ogt, Dr. Petersen aware, ordered to not initiate tube feeds at this time. pt sinus rhythm hr in 60s-70s, remains on epi. map>65. assessment unchanged further
--- NOTE | 2025-05-02 15:50 | PTCARENOTE ---
pt with 150cc of output from ogt, Dr. Petersen aware, ordered to not initiate tube feeds at this time. pt sinus rhythm hr in 60s-70s, remains on epi. map>65. assessment unchanged further
[2025-05-02] MEDS: LOVENOX 40 MG SC (17:24)
[2025-05-02 17:39] LABS: Glucose - Point of Care 160 mg/dl (70-99)
[2025-05-02 17:41] LABS: B.E. 0.6 mmol/L; HCO3 27.9 mmol/L (21-28); O2 Saturation % 99.8 % (94-98); PCO2 58 mmHg (35-48); PO2 141 mmHg (83-108)
[2025-05-02] MEDS: NOVOLOG FLEXPEN-LOW RESISTANCE 1 UNITS SC (17:53)
[2025-05-02] MEDS: FLOVENT 110 MCG INHALER 4 PUFF INH (19:40)
--- NOTE | 2025-05-02 20:48 | PTCARENOTE ---
Received pt from previous RN. Pt is intubated and sedated, drowsy, + gag and cough, opens eye when being suctioned, tries to reach up for the tube, restraints in place, pt reminded he is in the hospital. NSR on the monitor, MAP goal >65, epi gtt
(see worklist). ETT #8 25 cm, vent settings ASV 100% MV/5 peep/60%, bloody tinged, clear, thick sputum, lungs diminished. OG @ 75 cm to low intermittent suction. Romero in place for critical I&O, hygiene provided. Prop, fent gtts (see worklist), LR @
100 ml/hr. CHG bath and mouth care provided. Safe environment maintained.
[2025-05-02] MEDS: NOVOLOG FLEXPEN-LOW RESISTANCE SC (23:31)
[2025-05-02 23:43] LABS: Glucose - Point of Care 116 mg/dl (70-99)
[2025-05-03] VITALS (22 sets, daily range): BP systolic 100–155; BP diastolic 58–100; PULSE 85; O2SAT 94; BMI 29.3
--- NOTE | 2025-05-03 00:05 | PTCARENOTE ---
Systems reviewed, no new changes in assessment. Epi, prop and fent gtts maintained (see worklist). Right radial tessa zeroed and transduced. Safe environment maintained.
--- NOTE | 2025-05-03 03:33 | DOWNTIME ---
There was a [employer] Client Software Build Engineer Downtime on 05/03/2025 from 0100 to 05/03/2025 at 0215. Downtime documentation of patient's care, including medication administrations, has been reconciled in the electronic record per guidelines. Refer to the
patient's paper chart under the miscellaneous tab to see printed paper medication records and downtime forms.
--- NOTE | 2025-05-03 03:46 | PTCARENOTE ---
Systems reviewed, no new changes in assessment. AM labs provided. Gtts maintained. Safe environment maintained.
[2025-05-03 03:49] LABS: B.E. 5.3 mmol/L; HCO3 30.5 mmol/L (21-28); O2 Saturation % 100.0 % (94-98); PCO2 47 mmHg (35-48); PO2 138 mmHg (83-108)
[2025-05-03 03:50] LABS: O2 Therapy VENT
[2025-05-03 03:53] LABS: Hematocrit 27.3 % (39.0-52.0); Hemoglobin 9.2 g/dL (13.0-18.0); Mean Corp Hgb Conc. 33.7 g/dL (33.0-37.0); Mean Corpuscular Volume 91.6 fL (80.0-94.0); Platelet Count 127 10^3/uL (130-400); Red Cell Dist. Width 14.6 % (11.5-14.5)
[2025-05-03 04:21] LABS: Blood Urea Nitrogen 30 mg/dl (9-20); Calcium 8.8 mg/dl (8.4-10.2); Carbon Dioxide 28 mmol/L (22-30); Chloride 107 mmol/L (98-107); Estimated Creatinine Clearance 79 ml/min; Glucose 111 mg/dl (70-99); Magnesium 2.0 mg/dl (1.6-2.3); Potassium 3.9 mmol/L (3.5-5.1); Sodium 139 mmol/L (135-145); eGFR > 60.00
[2025-05-03] MEDS: SUBLIMAZE 50 MCG IV (05:10)
[2025-05-03] MEDS: NOVOLOG FLEXPEN-LOW RESISTANCE SC ×2 (05:15→13:36)
[2025-05-03 05:26] LABS: Glucose - Point of Care 118 mg/dl (70-99)
[2025-05-03] MEDS: DIPRIVAN 100 IV (06:36)
[2025-05-03] MEDS: DUONEB 3 ML INH ×4 (07:50→20:22)
[2025-05-03] MEDS: FLOVENT 110 MCG INHALER 4 PUFF INH (07:51)
[2025-05-03 08:16] LABS: Glycohemoglobin (HgbA1c) 5.9 % (4.0-5.6)
[2025-05-03] MEDS: PROTONIX IV 40 MG IV (08:18)
[2025-05-03] MEDS: MIRALAX 17 GRAMS TUBE (08:18)
--- NOTE | 2025-05-03 08:42 | W.PN.HOSP.TC ---
Today's Communication/Plan
-
No further IV antibiotics
Continue with IV steroids and Zithromax for anti-inflammatory properties/COPD flare
Continue with the wean trial per head filter tank tender helper
Assessment / Plan
Assessment / Plan
67-year-old with no known significant past medical history presenting to the emergency department with hypercarbic respiratory failure and altered mental status. X-ray with multifocal opacities read as possible pulmonary edema but likely pneumonia
given patient has no prior cardiac history and has recent upper respiratory infection she had by family members. There is no leukocytosis. Copious secretions status post intubation. Rest of the labs are mostly unremarkable except for the blood
gas. CT of the head, CT angio and perfusion shows no acute infarct according to radiologist read. Neurology did note possible basal ganglia infarct that can be followed by MRI.
PLAN:
Acute hypercarbic respiratory failure - patient is now status post intubation.
Improved gas exchange on the ventilator.
Currently on wean protocol
Suspected chronic lung disease/COPD-patient is a smoker, centrilobular emphysema and as well as a right upper lobe pleuroparenchymal/opacity noted.
Will need smoking cessation and as well as pulmonary function test once recovered from this.
Possible precipitant factor to hypercapnia may be underlying lung infection triggering COPD flare
Suspect more acute hypercapnia on top of possible chronic hypercapnia. Admitting serum bicarb is mildly elevated. Negative urine drug screen .
Bilateral interstitial lung infiltrates-infectious versus inflammation
Not acting like typical bacterial pneumonia-afebrile on admission, white count normal. There is also family members afflicted with respiratory illness pointing towards other viral or atypical bacterial infection.
Procalcitonin normal. Respiratory virus panel PCR negative. Hold further antibiotics.
Elevated inflammatory markers noted. Continue Zithromax.
So far pneumococcal and streptococcal urinary antigen, flu, COVID testing negative
Doubt interstitial edema-EKG apart from sinus bradycardia no acute changes, troponins negative, and BNP normal.
Continue with steroids for possible COPD flare
Right upper lobe opacity-needs dedicated CT chest once stabilized.
Sinus bradycardia-resolved off of propofol
AMS - suspect secondary to TME rather than CVA.
- f/u mri when extubated
DVT prophylaxis with Lovenox subcu
CODE STATUS full code
Total time spent on today's encounter was 52 minutes which included time spent in counseling the patient/family regarding diagnosis and treatment plan as listed above, goals of care, and symptom management. Case was discussed with nursing staff,
specialists, and care coordinators/case management. All labs and imaging personally reviewed by me. Remainder the time spent in detailed review of previous records, lab data, imaging, and other medical provider documentation.
Portions of this chart may have been created with voice recognition software. Occasional wrong word or 'sound alike' substitutions may have occurred due to the inherent limitations of voice recognition software.
Anticipated Discharge: > 48 hours
Subjective/Interval History
-
Date of Service: May 03, 2025
Remains intubated but currently on weaning trial. Alert and follows commands. No respiratory distress evident.
Objective Data
-
Labs:
Laboratory Results
05/03/25 05/03/25 05/03/25
03:41 03:42 08:14
WBC 14.1 H
Hgb 9.2 L
Hct 27.3 L
Plt Count 127 L
HCO3 30.5 H Pending
Sodium 139
Potassium 3.9
Chloride 107
Carbon Dioxide 28
BUN 30 H
Creatinine 1.1
Glucose 111 H
Calcium 8.8
Vital Signs:
Vital Signs
Temp Pulse Resp BP Pulse Ox
98 F 101 18 115/74 97
05/03/25 07:31 05/03/25 08:12 05/03/25 08:12 05/03/25 04:00 05/03/25 08:12
I&O
05/02/25 05/03/25 05/04/25
06:59 06:59 06:59
Intake Total 1001.9 / 1130.4 5161.7 / 5287.5 237.1 / 237.1
Output Total 1110 / 1185 1221 / 1301 150 / 150
Balance -108.1 / -54.6 3940.7 / 3986.5 87.1 / 87.1
Review of Systems
-
Unable to obtain full review of systems at this time due to: Patient Intubation
Physical Exam
-
General: No Apparent Distress
Respiratory: Wheezes (Occasional wheeze heard in the right lung today) and Non Labored Respirations; Negative Accessory Resp Muscle Use
Cardiac: Regular Rhythm, S1/S2 and Tachycardic
GI: Soft
Neuro: Awake and Alert
Psych: Calm
Data Reviewed
-
Labs: Labs Reviewed by me
[2025-05-03 09:23] LABS: B.E. 2.9 mmol/L; HCO3 27.9 mmol/L (21-28); O2 Saturation % 98.3 % (94-98); PCO2 44 mmHg (35-48); PO2 73 mmHg (83-108)
[2025-05-03] MEDS: LR IV (09:54)
--- NOTE | 2025-05-03 10:32 | W.PN.INTV ---
Today's Communication / Plan
Recommendations
- Switched to pressure support, successfully extubated to nasal cannula
- Continue bronchodilators and steroids along with 3 days of azithromycin
- CT chest without contrast for further evaluation of pulmonary opacity
- Start p.o.
Assessment
-
As per records, patient is a 65-year-old gentleman without any known past medical history however has chronic history of smoking and also has obesity. Patient reportedly developed an upper respite tract infection about a week ago including multiple
other family members who had similar flulike symptoms. Patient symptoms however persisted persisted and he presented to the emergency room due to increasing shortness of breath. Reportedly he also has increased confusion and some hallucinations at
home. In the emergency room patient was noted to be febrile along with respiratory distress along with acidosis primarily respiratory with pCO2 above 115. Patient was emergently intubated and mechanically ventilated. Post procedure, he was
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
#1. Acute on suspect chronic hypercapnic respiratory failure
- pCO2 more than 115 on admission, serial ABGs with progressive improvement. 7. this morning.
- With elevated serum bicarb and alkalosis after normalization of pCO2 on blood gas, suspect patient has chronic underlying compensated hypercapnia due to undiagnosed COPD/emphysema
- Tolerating ASV well, switched to pressure support trial, successfully extubated on 05/03
#2. Acute encephalopathy, related to hypercapnia
- Suspect encephalopathy primarily related to hypercapnia, improved, appears to be at baseline.
- CT CTA have been unremarkable for acute stroke, MRI pending
#3. Emphysema/COPD with acute exacerbation.
- Patient has changes of emphysema noted on pulmonary imaging. Longstanding history of smoking
- Continue DuoNeb scheduled 4 times daily, added budesonide twice daily nebulized, lowered steroids to 40 mg Solu-Medrol daily
- No obvious infiltrates noted on chest x-ray. Discontinued vancomycin and Zosyn. Continue azithromycin for COPD exacerbation.
- Influenza A, B, COVID-19 screen negative. Legionella and streptococcal antigen pending. Respiratory culture is also pending. Blood cultures drawn and pending.
- Follow-up on cultures as well as sputum analysis
- Patient will need outpatient pulmonary follow-up for pulmonary function testing including spirometry, lung volumes, diffusion capacity assessment and 6-minute walk test. Information added to the chart.
#4. Obesity with suspected sleep disordered breathing/obesity hypoventilation syndrome
- With baseline compensated hypercapnia, and obesity, high likelihood of underlying sleep disordered breathing
- Patient will need outpatient pulmonary follow-up for sleep study
#5. RUL nodule on imaging
- Incidental finding on CTA head and neck. With longstanding history of smoking and emphysema, malignancy is certainly a concern
- CT Chest ordered for further evaluation.
#6. Bradycardia
- Sinus bradycardia on EKG. Narrow complex qrs
- Normal TSH
- Resolved, off Epinephrine now. Suspect related to sedation.
DVT prophylaxis with subcu Lovenox. GI prophylaxis with IV Protonix.
Critical Care time 48 mins -- The patient is admitted for acute critical illness for the treatment of vital organ failure and/or prevention of further life-threatening conditions. Total care includes time spent in review of history, physical exam,
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
Data:
CXR 04/2025: Bilateral interstitial opacities, most suspicious for interstitial pulmonary edema. The opacity identified in the right lung apex on the recent CT angiogram is less well seen by radiograph.
No pleural effusion or pneumothorax.
Mild enlargement of the cardiac silhouette. Chronic degenerative changes of the spine
CT head 04/2025: Unremarkable
CTA Head/Neck 04/2025: No CTA evidence for high-grade stenosis or occlusion of the [place] or the arterial vasculature in the neck. 50% stenosis of the right carotid bulb, and less than 20% stenosis of the left carotid bulb.
Mild centrilobular emphysema.
2.1 cm irregular opacity in the right upper lung apex. Chronic pleural-parenchymal scarring is considered most likely, but an infectious/inflammatory process or neoplasm are not excluded. Recommend a follow-up chest CT on a routine basis.
Subjective Dataa
Subjective Data
Date of Service:
Date of Service: May 03, 2025
Subjective:
Patient evaluated prior to extubation and then again afterwards.
Review of Systems
General: Other (Patient mechanically ventilated and intubated)
Objective Data
Data Reviewed
Vital Signs / I&O / Oxygen:
Vital Signs
Temp Pulse Resp BP Pulse Ox
98 F 83 17 118/75 95
05/03/25 07:31 05/03/25 10:15 05/03/25 10:15 05/03/25 08:00 05/03/25 10:29
Intake and Output
05/02/25 05/03/25 05/04/25
06:59 06:59 06:59
Intake Total 1001.9 / 1130.4 5161.7 / 5287.5 337.1 / 337.1
Output Total 1110 / 1185 1221 / 1301 500 / 500
Balance -108.1 / -54.6 3940.7 / 3986.5 -162.9 / -162.9
SaO2 [ASV] 98
SaO2 [A/C] 94
SaO2 95
Nasal Cannula flow liters per 6
minute
Physical Exam
General: Comfortable
HEENT: Normocephalic
Cardiovascular: S1-S2
Respiratory: Clear and Non-Labored Respirations
GI: Soft and Non Distended
Neurology: Awake and Alert
Skin: Warm
Labs/Micro/Reports
Lab Data
05/03/25 03:42
05/03/25 03:42
Laboratory Results
05/02/25 05/02/25 05/03/25
11:29 Unknown 03:41
pH 7.31 L 7.29 L 7.42
pCO2 54 H 58 H 47
pO2 98 141 H 138 H
HCO3 27.2 27.9 30.5 H
O2 Delivery Level Vent
05/03/25
08:57
pH 7.41
pCO2 44
pO2 73 L
HCO3 27.9
O2 Delivery Level Not Reportable
Microbiology
05/02/25 00:39 Sputum Respiratory Culture - Preliminary
Usual Respiratory Silvia
05/02/25 00:39 Sputum Gram Stain - Preliminary
05/02/25 Unknown Nasalpharynx Influenza Type A (PCR) - Final
Not Detected
05/02/25 Unknown Nasalpharynx Influenza Type A (H1) (PCR) - Final
Not Detected
05/02/25 Unknown Nasalpharynx Influenza Type A (H3) (PCR) - Final
Not Detected
05/02/25 Unknown Nasalpharynx Influenza Type B (PCR) - Final
Not Detected
05/02/25 Unknown Nasalpharynx Resp Syncytial Virus Type A (PCR) - Final
Not Detected
05/02/25 Unknown Nasalpharynx Resp Syncytial Virus Type B (PCR) - Final
Not Detected
05/02/25 Unknown Nasalpharynx Adenovirus DNA (PCR) - Final
Not Detected
05/02/25 Unknown Nasalpharynx Human Metapneumovirus (PCR) - Final
Not Detected
05/02/25 Unknown Nasalpharynx Parainfluenza Virus Type 1 (PCR) - Final
Not Detected
05/02/25 Unknown Nasalpharynx Parainfluenza Virus Type 2 (PCR) - Final
Not Detected
05/02/25 Unknown Nasalpharynx Parainfluenza Virus Type 3 (PCR) - Final
Not Detected
05/02/25 Unknown Nasalpharynx Parainfluenza Virus Type 4 - Final
Not Detected
05/02/25 Unknown Nasalpharynx Rhinovirus (PCR) - Final
Not Detected
05/01/25 19:50 Blood/Venous Blood Culture - Preliminary
No Growth in 24 hours- Final report to follow
05/01/25 19:38 Blood/Venous Blood Culture - Preliminary
No Growth in 24 hours- Final report to follow
05/02/25 11:29 Nose Nasal Screen MRSA (PCR) - Final
MRSA not detected - performed by PCR methodology.
05/02/25 02:34 Urine Legionella Urinary Antigen - Final
Negative for Legionella pneumophila Serogroup 1 antigen.
A negative result does not rule out the possiblity of
Legionella infection due to other serogroups or species of
Legionella. Clinical correlation is recommended.
05/02/25 02:34 Urine Streptococcus pneumoniae Antigen (M - Final
Negative for Streptococcus pneumoniae antigen.
A negative result does not exclude infection with
Streptococcus pneumoniae. Clinical correlation is
recommended.
05/01/25 20:55 Nasal Swab Influenza Types A & B (MAXINE) - Final
Negative for Influenza A & B, NAAT
Negative results must be combined with clinical observations
and patient history.
Nucleic Acid Amplification test (NAAT)performed on the
[employer] platform.
[2025-05-03] MEDS: ZITHROMAX INFUSION 250 IV (12:25)
--- NOTE | 2025-05-03 12:51 | PTCARENOTE ---
Extubated at 0945. Off all drips. AAOx3. Sinus rhythm. BP stable off pressors. A-line d/c'd. SpO2 92-95% on 6L NC. Moist cough. Romero d/c'd. Ordering lunch now. Ambulated to bathroom with 1 assist. All other assessments unchanged.
--- NOTE | 2025-05-03 13:07 | CON.CAR ---
Addendum entered and electronically signed by rTipp Dumont MD 05/03/25 15:43:
I saw and examined the patient. Majority of MDM made by me.
The RUBBER ENGRAVER's note was reviewed and I agree with the note with changes/additions below.
Comment: 65 yo male with current tobacco use, no recent medical care/PCP visits, is admitted with hypercapneic respiratory failure. Thought that URI triggered this, in setting of undiagnosed COPD. He was intubated on admission, and was extubated
today. SOB better. No chest pain. No edema. Exam with RRR, III/ systolic murmur at apex, no edema. Echo: EF 65-70%, mild AR, mild , mobile echodensity associated with posterior mitral valve leaflet, approx 1.5 cm. Cannot rule out vegetation vs
calcified valve apparatus. Tele: SR, brief SVT. BCx negative.
We are consulted for abnormal mitral valve, as described above. No other clinical signs of endocarditis. I spoke to hospitalist and healthcare marketer team. I recommended XIOMY to evaluate mitral valve more fully. Also, based on murmur on exam, MR may be
worse than TTE suggests (shadowing from calcification). Patient declines XIOMY, but will reconsider as outpatient. I also told him that if Bcx become positive, we need to reconsider at inpatient.
-of note, patient's and daughter screamed multiple times during my interview: ' I'm taking him home,' ' he doesn't have a heart problem,' 'he is not short of breath, he just has pneumonia.' It is unclear to me why they were so agitated, and
patient did not seem surprised by their interjections.
Mild AR, . Outpatient follow up.
Original Note:
Consultation
Consultation Request
Date/Time Consultation Requested: 05/03/25 1p
Date/Time Consultation Performed: 05/03/25 1p
Requesting Provider: Dr. Jordan
Performing Provider: LIONEL Wilcox for Dr. Dumont
Reason for Consultation: abnormal echo
Medical History
-
Chief Complaint: URI symptoms, altered mental status
History of Present Illness:
Mr. Reid is a 65 yo male smoker without significant past medical history, who presented to the ER from Urgent care 05/01/25 for altered mental status and respiratory distress. He was intubated in the ER for hypercapnic respiratory distress.
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 He is admitted to the hospitalist service in the ICU. We are consulted for an abnormal echo today, 05/03/25. Echo showed normal LV size/function, EF
65-70%, mild AR, mild , thickened mitral valve leaflets, MAC, mobile echodensity posterior mitral valve leaflet measuring 1.5cm, vegetation vs calcified valve apparatus, mild TR, PASP 46mmHg. XIOMY is indicated for further evaluation. He denies any
heart history.
Past Medical History
Past Medical History: None
Past Surgical History: None
Social History
Tobacco: Smoker
Personal:
Living: With Family
Employment: Employed
Family History
Family History: Reviewed & Not Pertinent
Allergies / Home Medications
Allergy/AdvReac Type Severity Reaction Status Date / Time
No Known Allergies Allergy Unverified 05/01/25 19:19
Review of Systems
-
History Source: Patient
All other systems: Negative unless noted
Physical Exam
Vital Signs
Temp Pulse Resp BP Pulse Ox
98.4 F 76 24 138/84 92
05/03/25 11:18 05/03/25 12:30 05/03/25 12:30 05/03/25 11:47 05/03/25 12:30
Lab Results
05/03/25 03:42
05/03/25 03:42
Troponin I < 0.012 ng/ml 05/01/25 20:55
Yen-L-Hjnritpikia Pept 693 pg/ml 05/01/25 20:55
Physical Exam
General: Well Developed, Well Nourished and No Apparent Distress
HEENT: Normocephalic and Anicteric
Respiratory: Clear and Non Labored Respirations
Cardiac: S1/S2 and Regular Rhythm
Breast: Deferred by me
GI: Soft, Non Distended and Normal Bowel Sounds
Rectal: Deferred by Provider
Genito-urinary: No Costovertebral Tender
Musculoskeletal: No Clubbing, No Cyanosis and No Edema
Skin: Warm and Dry
Neuro: AO x 3
Psych: Agitated (annoyed about current medical condition and refuses XIOMY.)
Impression / Plan
-
Abnormal echo - mobile echodensity posterior mitral valve leaflet 1.5cm.
- recommend XIOMY for further evaluation.
- patient and his daughter refuse XIOMY at this time.
Hypercapnic respiratory failure - intubated in the ER 05/01/25 on arrival.
- extubated 05/03/25.
- pulmonary following.
Smoker/COPD/RUL nodule - pulmonary following.
- smoking cessation recommended.
Obesity - chronic.
- would benefit from weight loss as an outpatient.
Altered mental status - acute encephalopathy related to hypercapnia.
- head CT unremarkable.
- monitor.
Echo 05/03/25:
1. Normal left ventricular size and systolic function. Estimated LVEF 65-70%.
2. Mild aortic regurgitation. Mild aortic stenosis.
3. Thickened mitral valve leaflets. Mitral annular calcification. There is a mobile echodensity associated with posterior mitral valve leaflet, approx 1.5 cm. Cannot rule out vegetation vs calcified valve apparatus.
4. Mild tricuspid regurgitation. Estimated pulmonary artery pressure of 46 mmHg assuming a right atrial pressure of 15 mmHg. Moderately elevated PASP.
5. No prior study for comparison. Consider XIOMY for additional imaging/evaluation of mitral valve based on clinical course.
Data Reviewed
-
EKG: Tracing Personally Visualized and interpreted (ST 105 bpm)
Radiology: Report Reviewed by me (CXR: b/l opacities concerning for interstitial pulmonary edema, no effusions. )
CT Scan: Report Reviewed by me (head: negative. chest CT 05/03/25: right apical scarring, no suspicious nodules, b/l lower lobe infectious/inflammatory bronchiolitis.) and Other (head/neck CTA: No CTA evidence for high-grade stenosis or occlusion of
the [place] or the arterial vasculature in the neck. 50% stenosis of the right carotid bulb, and less than 20% stenosis of the left carotid bulb. mild centrilobular emphysema, 2.1cm irregular opacity in RUL.)
Medical Tests (Nuc Med, Echo etc): Report Reviewed by me (Echo 05/03/25: showed normal LV size/function, EF 65-70%, mild AR, mild , thickened mitral valve leaflets, MAC, mobile echodensity posterior mitral valve leaflet measuring 1.5cm, vegetation
vs valve apparatus, mild TR, PASP 46mmHg.)
Labs: Labs Reviewed by me
[2025-05-03 13:37] LABS: Glucose - Point of Care 93 mg/dl (70-99)
--- NOTE | 2025-05-03 14:29 | CM ---
Addendum entered by Heather De Santiago 05/03/25 14:31:
Follow for any oxygen needs at discharge
Original Note:
Chart reviewed and patient is off ventilator, will await PT/OT evaluations and recommendations, patient lives with spouse.
Plan; Home when stable.
[2025-05-03 16:51] LABS: Glucose - Point of Care 131 mg/dl (70-99)
[2025-05-03] MEDS: SOLU-MEDROL PF 40 MG IV (17:03)
[2025-05-03] MEDS: LOVENOX 40 MG SC (17:03)
[2025-05-03] MEDS: PULMICORT 0.5 MG INH (20:22)
[2025-05-03 21:18] LABS: Glucose - Point of Care 133 mg/dl (70-99)
--- NOTE | 2025-05-03 21:22 | PTCARENOTE ---
Received pt from previous RN. Pt OOB in the chair, assisted pt to the BR x1 assist and then back to bed. Pt is AAOx3, flat. NSR on the monitor. Pt on 4L NC O2 sat 91%, lungs diminished, productive cough. Mouth care provided. Call thrasher in reach. Safe
environment maintained.
[2025-05-04] VITALS (12 sets, daily range): BP systolic 102–133; BP diastolic 60–107; PULSE 85; O2SAT 93; BMI 28.7
--- NOTE | 2025-05-04 00:22 | PTCARENOTE ---
Systems reviewed, no new changes in assessment. Safe environment maintained.
--- NOTE | 2025-05-04 04:18 | PTCARENOTE ---
Systems reviewed, no new changes in assessment. O2 weaned to 2L O2 sat 92%. AM labs provided. Safe environment maintained.
[2025-05-04 04:38] LABS: Blood Urea Nitrogen 33 mg/dl (9-20); Calcium 8.8 mg/dl (8.4-10.2); Carbon Dioxide 33 mmol/L (22-30); Chloride 108 mmol/L (98-107); Estimated Creatinine Clearance 87 ml/min; Glucose 116 mg/dl (70-99); Magnesium 2.3 mg/dl (1.6-2.3); Potassium 4.5 mmol/L (3.5-5.1); Sodium 143 mmol/L (135-145); Triglycerides 105 mg/dl (10-149); eGFR > 60.00
[2025-05-04] MEDS: SYMBICORT 160/4.5 MCG INHALER 2 PUFF INH (07:44)
[2025-05-04] MEDS: DELTASONE 40 MG PO (07:52)
[2025-05-04] MEDS: ZITHROMAX 500 MG PO (07:52)
[2025-05-04 07:55] LABS: Glucose - Point of Care 153 mg/dl (70-99)
--- NOTE | 2025-05-04 08:28 | PTCARENOTE ---
Recd pt 0715 handoff at bedside, no distress, VS noted. tolerating 2l nc, sats 88-91. Encouraged IS with good return demo. OOB to bathroom, moved bowels, presently sitting in chair. Dr. Jordan speaking with patient.
--- NOTE | 2025-05-04 08:41 | W.PN.HOSP.TC ---
Addendum entered and electronically signed by Jaime Jordan MD 05/10/25 12:09:
Pneumonia is likely diagnosis
Addendum entered and electronically signed by Jaime Jordan MD 05/04/25 14:06:
patient keen to go home. Checked with pulmonary who recommended transition to oral prednisone and a steroid inhaler and follow-up in office.
Patient is made aware about the need of repeat CT chest to follow-up on the right upper lobe scarring. Also reminded him again about tobacco cessation. 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
He is also advised to follow-up with cardiology regarding mobile density on the mitral valve. All his questions answered and patient was discharged home.
Original Note:
Today's Communication/Plan
-
Transferred to [facility]
Home O2 eval
PT eval
DC planning
Assessment / Plan
Assessment / Plan
67-year-old with no known significant past medical history presenting to the emergency department with hypercarbic respiratory failure and altered mental status. X-ray with multifocal opacities read as possible pulmonary edema but likely pneumonia
given patient has no prior cardiac history and has recent upper respiratory infection she had by family members. There is no leukocytosis. Copious secretions status post intubation. Rest of the labs are mostly unremarkable except for the blood
gas. CT of the head, CT angio and perfusion shows no acute infarct according to radiologist read. Neurology did note possible basal ganglia infarct that can be followed by MRI.
PLAN:
Acute hypercarbic hypoxic respiratory failure
Improved. Off of ventilator 05/03.
Oxygenating okay on 2 L.
I suspect while recovering he might need home O2. Will check on home O2 evaluation
Suspected chronic lung disease/COPD-patient is a smoker, centrilobular emphysema and as well as a right upper lobe pleuroparenchymal/opacity noted.
Possible precipitant factor to hypercapnia may be underlying lung infection triggering COPD flare
Suspect more acute hypercapnia on top of possible chronic hypercapnia. Admitting serum bicarb is mildly elevated. Negative urine drug screen .
Counseled about tobacco smoking-patient strongly motivated to quit tobacco smoking going forward.
Patient advised to follow with pulmonary regarding pulmonary function test and COPD care
Bilateral interstitial lung infiltrates-infectious versus inflammation
Not acting like typical bacterial pneumonia-afebrile on admission, white count normal. There is also family members afflicted with respiratory illness pointing towards other viral or atypical bacterial infection.
Procalcitonin normal. Respiratory virus panel PCR negative. Hold further antibiotics. Remains improved.
Elevated inflammatory markers noted. Continue Zithromax.
So far pneumococcal and streptococcal urinary antigen, flu, COVID testing negative
Doubt interstitial edema-EKG apart from sinus bradycardia no acute changes, troponins negative, and BNP normal.
Continue with steroids for possible COPD flare-taper per pulmonary.
Right upper lobe opacity-CT of the chest shows right apical scarring with no nodules or tumors. Follow-up with pulmonary..
Sinus bradycardia-resolved off of propofol
Mitral valve vegetation versus calcification-XIOMY was offered to the patient and was declined by the patient. He may want to consider as an outpatient. Follow-up with cardiology as an outpatient. Appreciate cardiology input. He is not bacteremic
on admission.
AMS - suspect secondary to TME rather than CVA.
- Postextubation without any confusion nonfocal neurologically.
- CT head and CTA head and neck were negative at the time of admission.
- Will hold MRI brain.
Normocytic anemia-hemoglobin post admission showed a drop. No obvious external bleeding. Repeat in AM. Check iron studies.
DVT prophylaxis with Lovenox subcu
CODE STATUS full code
Transfer to [facility]
PT OT eval
Home O2 eval
DC planning
Portions of this chart may have been created with voice recognition software. Occasional wrong word or 'sound alike' substitutions may have occurred due to the inherent limitations of voice recognition software.
Anticipated Discharge: Within 24 hours
Subjective/Interval History
-
Date of Service: May 04, 2025
Patient now extubated currently on 2 L. Sitting in the chair comfortable today.
Feels much better with the breathing and cough. Cough is less productive. Breathing comfortably.
Denies chest pain.
Denies any nausea vomiting. Appetite is good.
No fever or chills.
No lightheadedness.
Looking forward for discharge.
He tells me he is done with the cigarettes going forward
Objective Data
-
Labs:
Laboratory Results
05/04/25
03:57
Sodium 143
Potassium 4.5
Chloride 108 H
Carbon Dioxide 33 H
BUN 33 H
Creatinine 1.0
Glucose 116 H
Calcium 8.8
Vital Signs:
Vital Signs
Temp Pulse Resp BP Pulse Ox
98.3 F 88 19 132/107 90
05/04/25 08:00 05/04/25 08:00 05/04/25 08:00 05/04/25 08:00 05/04/25 08:00
I&O
05/03/25 05/04/25 05/05/25
06:59 06:59 06:59
Intake Total 5161.7 / 5287.5 997.1 / 997.1 240 / 240
Output Total 1221 / 1301 1630 / 1630
Balance 3940.7 / 3986.5 -632.9 / -632.9 240 / 240
Physical Exam
-
General: Comfortable
Respiratory: Wheezes (Faint wheeze in the left lower lobe heard otherwise generally decreased breath sounds) and Non Labored Respirations; Negative Accessory Resp Muscle Use
Cardiac: Regular Rhythm and S1/S2; Negative Tachycardic
GI: Soft
Musculoskeletal: No Edema
Neuro: AO x 3, No Motor Deficits and Slurred Speech; Negative Facial Droop
Psych: Calm; Negative Confused or Agitated
Data Reviewed
-
Labs: Labs Reviewed by me
[2025-05-04 09:59] LABS: Iron 29 ug/dl (49-181)
[2025-05-04 10:08] LABS: Total Iron Binding Capacity 210 ug/dl (261-462)
--- NOTE | 2025-05-04 10:14 | PTCARENOTE ---
attempted ambulation on room air, pulse ox started 90%, desat with ambulation to 85%, returned to room, oxygen replaced, desat further to 83 all of this asymptomatic. returned spontaneously within a few minutes to 92%.
--- NOTE | 2025-05-04 10:24 | PN.CDI ---
CDI
- -
CDI:
Physician Documentation Request
Admit Date: 05/01/25 21:38
Dear Doctor Juilan,
Patient admitted for respiratory failure.
05/03 CXR: 'Mild diffuse interstitial prominence may reflect pulmonary interstitial edema and/or pneumonitis. Cannot rule out underlying chronic interstitial lung disease.'
05/04 Hospitalist PN: 'Bilateral interstitial lung infiltrates-infectious versus inflammation
Not acting like typical bacterial pneumonia-afebrile on admission, white count normal. There is also family members afflicted with respiratory illness pointing towards other viral or atypical bacterial infection.'
Medications
Azithromycin (Zithromax Infusion) 500 mg in 250 mls @ 250 mls/hr IV Q24H SAHIL
Stop: 05/05/25 11:59
Last Admin: 05/03/25 12:25 Dose: 250 mls
Azithromycin (Azithromycin 250 Mg Tablet) 500 mg PO DAILY SAHIL
Stop: 05/06/25 08:01
Last Admin: 05/04/25 07:52 Dose: 500 mg
Please clarify the following:
____ - Pneumonia was present on admission and is now resolved.
____ - Pneumonia was present on admission and is still being monitored, evaluated or treated
____ - Pneumonia was ruled out
____ - Pneumonia is still a likely, suspected, probable diagnosis
____ - Other
____ - Unable to determine
Use of terms such as suspected, likely, concern for, or probable (associated with a specific diagnosis that is being evaluated, monitored, or treated as if it exists) are acceptable and can be coded in the inpatient setting, when documented at the
time of discharge.
Thank you,
Sherly Sibley RN, BSN
CDI Specialist
Available via [place] text
Please use your independent medical judgment in providing your response.
[2025-05-04 11:37] LABS: Ferritin 155.0 ng/ml (17.9-464.0)
--- NOTE | 2025-05-04 11:53 | PTCARENOTE ---
long discussion with pt about his wishes to go home, family bedside. Reviewed sequelae of hypoxemia, pt agreeable to consider following proper channels. Dr. Jordan and case management notified. Pt aware.
--- NOTE | 2025-05-04 12:28 | W.PN.PUL3 ---
Today's Communication / Plan
-
- Continue Symbicort 2 puffs twice a day scheduled at discharge
- Prednisone 40 mg daily for 4 days then 30 mg for 4 days then 20 mg for 4 days then 10 mg for 4 days
- Continue azithromycin 500 daily for total of 5 days
- Assess for need for home oxygen prior to discharge
- Outpatient follow-up with pulmonary clinic, information added to discharge section
- Pulmonary team will sign off, please call as needed
Assessment
-
Patient is a 65-year-old gentleman without any known past medical history however has chronic history of smoking and also has obesity. Patient reportedly developed an upper respite tract infection about a week ago including multiple other family
members who had similar flulike symptoms. Patient symptoms however persisted persisted and he presented to the emergency room due to increasing shortness of breath. Reportedly he also has increased confusion and some hallucinations at home. In
the emergency room patient was noted to be febrile along with respiratory distress along with acidosis primarily respiratory with pCO2 above 115. Patient was emergently intubated and mechanically ventilated. Post procedure, he was admitted to the
ICU and card feeder consultation was requested for further input.
#1. Acute on suspect chronic hypercapnic respiratory failure
- pCO2 more than 115 on admission, serial ABGs with progressive improvement.
- With elevated serum bicarb and alkalosis after normalization of pCO2 on blood gas, suspect patient has chronic underlying compensated hypercapnia due to undiagnosed COPD/emphysema
- Successfully extubated on 05/03
#2. Acute encephalopathy, related to hypercapnia
- Suspect encephalopathy primarily related to hypercapnia, improved, appears to be at baseline.
- CT CTA have been unremarkable for acute stroke, MRI pending
#3. Emphysema/COPD with acute exacerbation.
- Patient has changes of emphysema noted on pulmonary imaging. Longstanding history of smoking
- DC nebulizers, start Symbicort 2 puffs twice a day, switch to p.o. prednisone continue with 5 days of azithromycin
- Procalcitonin was negative, vancomycin and Zosyn were stopped.
- Influenza A, B, COVID-19 screen negative. All cultures negative.
- Patient will need outpatient pulmonary follow-up for pulmonary function testing including spirometry, lung volumes, diffusion capacity assessment and 6-minute walk test. Information added to the chart.
#4. Obesity with suspected sleep disordered breathing/obesity hypoventilation syndrome
- With baseline compensated hypercapnia, and obesity, high likelihood of underlying sleep disordered breathing
- Patient will need outpatient pulmonary follow-up for sleep study
#5. RUL nodule on imaging
- Incidental finding on CTA head and neck. With longstanding history of smoking and emphysema, malignancy is certainly a concern
- CT Chest suggestive of parenchymal scarring. Counseled patient regarding need for a 3-month follow-up CT chest as he is also at risk of malignancy. Counseled regarding need for outpatient follow-up and close monitoring, patient's daughter at
bedside in agreement.
#6. Bradycardia
- Sinus bradycardia on EKG. Narrow complex qrs
- Normal TSH
- Resolved, off Epinephrine now. Suspect related to sedation.
DVT prophylaxis with subcu Lovenox. GI prophylaxis with IV Protonix.
Total time spent on this consultation/encounter __48__ minutes which includes review of history, physical exam, medications, laboratory data, personal review of imaging, extensive review of outpatient records, discussion with care team and
respiratory therapy.
Data:
CXR 04/2025: Bilateral interstitial opacities, most suspicious for interstitial pulmonary edema. The opacity identified in the right lung apex on the recent CT angiogram is less well seen by radiograph.
No pleural effusion or pneumothorax.
Mild enlargement of the cardiac silhouette. Chronic degenerative changes of the spine
CT head 04/2025: Unremarkable
CTA Head/Neck 04/2025: No CTA evidence for high-grade stenosis or occlusion of the [place] or the arterial vasculature in the neck. 50% stenosis of the right carotid bulb, and less than 20% stenosis of the left carotid bulb.
Mild centrilobular emphysema.
2.1 cm irregular opacity in the right upper lung apex. Chronic pleural-parenchymal scarring is considered most likely, but an infectious/inflammatory process or neoplasm are not excluded. Recommend a follow-up chest CT on a routine basis.
Subjective Data
-
Date of Service:
Date of Service: May 04, 2025
Subjective:
Patient comfortably sitting in chair in no acute distress.
Review of Systems
Genitourinary: Other (All 14 systems reviewed and negative except as stated above in the history of present illness.)
Objective Data
Data Reviewed
Vital Signs / I&O / Oxygen:
Vital Signs
Temp Pulse Resp BP Pulse Ox
98.6 F 65 20 132/107 92
05/04/25 12:26 05/04/25 09:00 05/04/25 09:00 05/04/25 08:00 05/04/25 10:00
Intake and Output
05/03/25 05/04/25 05/05/25
06:59 06:59 06:59
Intake Total 5161.7 / 5287.5 997.1 / 997.1 480 / 480
Output Total 1221 / 1301 1630 / 1630
Balance 3940.7 / 3986.5 -632.9 / -632.9 480 / 480
SaO2 [ASV] 98
SaO2 [A/C] 94
SaO2 92
Nasal Cannula flow liters per 2
minute
Physical Exam
General: Comfortable
HEENT: Normocephalic
Cardiovascular: S1-S2
Respiratory: Clear and Non-Labored Respirations
GI: Soft and Non Distended
Neurology: Awake and Alert
Skin: Warm
Labs/Micro/Reports
Lab Data
05/03/25 03:42
05/04/25 03:57
Microbiology
05/02/25 00:39 Sputum Respiratory Culture - Final
Usual Respiratory Silvia
05/02/25 00:39 Sputum Gram Stain - Final
05/01/25 19:50 Blood/Venous Blood Culture - Preliminary
No Growth in 48 hours- Final report to follow
05/01/25 19:38 Blood/Venous Blood Culture - Preliminary
No Growth in 48 hours- Final report to follow
05/02/25 Unknown Nasalpharynx Influenza Type A (PCR) - Final
Not Detected
05/02/25 Unknown Nasalpharynx Influenza Type A (H1) (PCR) - Final
Not Detected
05/02/25 Unknown Nasalpharynx Influenza Type A (H3) (PCR) - Final
Not Detected
05/02/25 Unknown Nasalpharynx Influenza Type B (PCR) - Final
Not Detected
05/02/25 Unknown Nasalpharynx Resp Syncytial Virus Type A (PCR) - Final
Not Detected
05/02/25 Unknown Nasalpharynx Resp Syncytial Virus Type B (PCR) - Final
Not Detected
05/02/25 Unknown Nasalpharynx Adenovirus DNA (PCR) - Final
Not Detected
05/02/25 Unknown Nasalpharynx Human Metapneumovirus (PCR) - Final
Not Detected
05/02/25 Unknown Nasalpharynx Parainfluenza Virus Type 1 (PCR) - Final
Not Detected
05/02/25 Unknown Nasalpharynx Parainfluenza Virus Type 2 (PCR) - Final
Not Detected
05/02/25 Unknown Nasalpharynx Parainfluenza Virus Type 3 (PCR) - Final
Not Detected
05/02/25 Unknown Nasalpharynx Parainfluenza Virus Type 4 - Final
Not Detected
05/02/25 Unknown Nasalpharynx Rhinovirus (PCR) - Final
Not Detected
05/02/25 11:29 Nose Nasal Screen MRSA (PCR) - Final
MRSA not detected - performed by PCR methodology.
05/02/25 02:34 Urine Legionella Urinary Antigen - Final
Negative for Legionella pneumophila Serogroup 1 antigen.
A negative result does not rule out the possiblity of
Legionella infection due to other serogroups or species of
Legionella. Clinical correlation is recommended.
05/02/25 02:34 Urine Streptococcus pneumoniae Antigen (M - Final
Negative for Streptococcus pneumoniae antigen.
A negative result does not exclude infection with
Streptococcus pneumoniae. Clinical correlation is
recommended.
05/01/25 20:55 Nasal Swab Influenza Types A & B (MAXINE) - Final
Negative for Influenza A & B, NAAT
Negative results must be combined with clinical observations
and patient history.
Nucleic Acid Amplification test (NAAT)performed on the
[employer] platform.
--- NOTE | 2025-05-04 14:09 | PTCARENOTE ---
oxygen delivery as prescribed. Dr. Jordan spoke with patient by phone. Discharge order received, packet printed, Case Management in room presently with pt.
--- NOTE | 2025-05-04 14:19 | CM ---
Addendum entered by Jessica Almonte 05/04/25 14:27:
Patient also discharging with O2 delivered by [facility]. Transport tank has been delivered.
Original Note:
Patient has been medically cleared for discharge to home with [facility], PT/OT services. Family will discharge home.
--- NOTE | 2025-05-04 15:12 | PTCARENOTE ---
discharged to home with family, taken to waiting auto/family. placed on new oxygen tank/home rental and home cannula for transport and ride home. questions answered. IVs removed intact. Verbalizes no questions.
[2025-05-04 15:17] LABS: Reticulocyte Count 2.8 % (0.4-2.8)
--- NOTE | 2025-05-05 15:21 | W.DCSUMMARY ---
Discharge Summary
Discharge Data
Date of Admission: 05/01/25
Date of Discharge: 05/04/25
-
Pending Results: No
Hospital Course
Primary diagnosis:
Acute hypercapnic hypoxic respiratory failure
Suspected chronic hypercapnia
Suspected chronic lung disease/emphysema/chronic obstructive pulmonary disease
Bilateral interstitial lung infiltrates
Right upper lobe pleuroparenchymal opacity suspected scarring on CT
Secondary diagnosis:
Smoker
Hospital course:
67-year-old smoker with no known significant past medical history developed upper respiratory infection for about a week. Family members had upper respiratory infection symptoms as well. His symptoms persisted and then he started to become short
of breath and confused with hallucination at home.
He was noted to be in respiratory distress with acidosis and pCO2 of 115. Patient was immediately intubated in the ER.
CT imaging showed central lobar emphysema as well as right upper lobe pleural-parenchymal opacity which was described as scarring on CT chest. He probably has undiagnosed underlying COPD/emphysema.
There was also bilateral lower lobe infectious/inflammatory bronchiolitis. Did not act as typical pneumonia. Procalcitonin was normal. His admitting white count was normal. Blood cultures were negative. COVID-19 was negative. Flu was negative.
Urine Legionella and streptococcal antigen were negative. Respiratory cultures showed usual aimee.
The bronchiolitis was felt less likely bacterial. He even had respiratory virus panel PCR which was also negative. Antibiotics were discontinued.
He was treated with steroids. He had successful extubation. He was still hypoxic after extubation. He needed home O2 which was arranged.
Pulmonary recommended slow steroid taper, Symbicort inhaler and albuterol inhaler.
He was advised strongly to quit smoking. Advised follow-up with pulmonary for pulmonary function test and also repeat CT of the chest in 3 months regarding the right upper lobe opacity.
Portions of this chart may have been created with voice recognition software. Occasional wrong word or 'sound alike' substitutions may have occurred due to the inherent limitations of voice recognition software.
Consultants on board:
Pulmonary-Dmitriy Soares
Discharge Plan
-
Patient Disposition: Home with Home Care
Discharge Diagnosis/Procedures: Acute on suspect chronic hypercapnic respiratory failure, change in mental status suspected TME secondary to hypercapnia
Emphysema / COPD with exacerbation-new diagnosis; right upper lobe pleuroparenchymal opacity suspected scarring; Mitral valve mobile density
Diet: Regular
Activity: As tolerated
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
Others Tests: Repeat CT chest with IV contrast in 3 months to follow-up on right upper lobe parenchymal [id number] with PCP or pulmonary to arrange this
Referrals:
Lyssa Rubio NP [Specified Professional Personl, Cardiology] - 05/30/25 11:00 am
Camilla Petersen MD [Active, Pulmonary Medicine] - in one month
Referral Note: Patient needs full PFTs and 6 min walk test
NONE,* [Family Provider, Internal Medicine] - in less than 1 week
Referral Note: Follow-up with your PCP in a week
Prescriptions:
New
prednisone 10 mg tablet
10 mg PO DIRECTED Qty: 40 0RF
Rx Instructions:
40 mg into 3 days and then cut down by 10 mg every fourth day
azithromycin 250 mg Tablet
500 mg PO DAILY Qty: 2 0RF
budesonide-formoterol [Symbicort] 160-4.5 mcg/actuation Hfa Aerosol Inhaler
2 puff inhalation R BID Qty: 1 1RF
albuterol sulfate [Ventolin HFA] 90 mcg/actuation HFA aerosol inhaler
2 puff inhalation Q6H PRN (Reason: shortness of breath or wheezing) Qty: 6.7 1RF
Discharge Orders:
Discharge Patient (As Directed); Ordered 05/04/25
Ordered By: Jaime Jordan
Discharge Date and Time
Discharge Date/Time: 05/04/25 15:10
Print Language: ICELANDIC
== END 2025-05-04 15:10 | disposition home health service (06) | DRG 208 ==
LOC: ICU 21:38
PROVIDERS: Nurse Practitioner Primary Care; ADMITTING PHYSICIAN Internal Medicine; ATTENDING PHYSICIAN Internal Medicine; CONSULT PHYSICIAN Internal Medicine; EMERGENCY PHYSICIAN Emergency Medicine
PROC: 5A1935Z Respiratory Ventilation, Less than 24 Consecutive Hours (ICD-10-PCS; 2025-05-02)
DX: J44.1 Chronic obstructive pulmonary disease with (acute) exacerbation (principal); J96.02 Acute respiratory failure with hypercapnia; J18.9 Pneumonia, unspecified organism; E87.4 Mixed disorder of acid-base balance; G93.40 Encephalopathy, unspecified; F17.200 Nicotine dependence, unspecified, uncomplicated; Z99.81 Dependence on supplemental oxygen; E66.9 Obesity, unspecified; J43.9 Emphysema, unspecified; Z11.52 Encounter for screening for COVID-19; J44.0 Chronic obstructive pulmonary disease with (acute) lower respiratory infection
CPT/HCPCS: 0042T; 70030; 70450; 70496; 70498; 71045; 71250; 80048; 80053; 80306; 82330; 82728; 82805; 82962; 83036; 83540; 83550; 83605; 83735; 83880; 84100; 84132; 84145; 84302; 84443; 84478; 84484; 85025; 85027; 85045; 85610; 85730; 86140; 87040; 87070; 87205; 87449; 87502; 87633; 87641; 87811; 87899; 93005; 93306; 94002; 94003; 94640; 96361; 96374; 96375; 97116; 97163; 99291; Q9967